=== PATIENT | female | born 1990 | race African-American/Black ===

== ENCOUNTER 2016-12-24 14:45 | Emergency (ER) | payer MEDICAID | END 2016-12-24 16:59 | disposition home or self-care (01) | LOC: D.ER 14:45 | DX: M54.5 Low back pain (principal); F17.200 Nicotine dependence, unspecified, uncomplicated; E11.9 Type 2 diabetes mellitus without complications; I10 Essential (primary) hypertension; G62.9 Polyneuropathy, unspecified ==